=== PATIENT | female | born 1980 | race Two or more races ===

== ENCOUNTER 2024-07-21 11:02 | Emergency (ER) | payer MEDICAID, OTHER ==
[~2024-07-21] VITALS: Ht 172.7 cm; Wt 59.0 kg
[2024-07-21 11:56] LABS: Urine Bacteria None Seen /hpf (None Seen)
[2024-07-21 12:31] LABS: Urine Blood Negative /uL (Negative); Urine Clarity Clear (Clear); Urine Color Yellow (Yellow); Urine Mucus FEW (None Seen); Urine Protein, UAD TRACE (Negative); Urine Specific Gravity 1.017 (1.001-1.035); Urine Urobilinogen Normal (Negative); Urine WBC <1 /hpf (0 - 5)
[2024-07-21 12:37] VITALS: BP 136/92; RESP 20; TEMP 98.1; O2SAT 97
[2024-07-21 14:17] VITALS: PULSE 81
--- NOTE | 2024-07-21 15:02 | ED.PDOC ---
HPI Comments 43-year-old female with no past medical history presented with complaints of chest pain and cough. Patient mentioned that she had cough that started yesterday alongside sputum that was whitish in color. She also mentioned associated nasal congestion. She describes chest pain as substernal radiating to the left arm and back, increased on deep inspiration, not relieved by rest, burning and mild pressure-like. She mentioned the pain increased on lying down but relieved on sitting up. She mentioned mild fever yesterday. She denied any nausea, vomiting, abdominal pain, diarrhea, constipation, headac he, dizziness, shortness of breath, generalized weakness, fatigue, melena, hematemesis. Past medical history Denied Past surgical history Hysterectomy in January 2024 Medication history Denied Allergic history Denied Family history Nonsignificant Social history Patient smokes for last 25 years, denied alcohol, marijuana or any other drug intake. Review of system As described in the HPI Examination General Appearance: Alert, Oriented X3, Cooperative, No acute distress HEENT: EOMI Respiratory: Clear to auscultation, Normal air movement Cardiovascular: Regular rate, Normal S1, Normal S2 Abdominal: Normal bowel sounds Extremities: No cyanosis, No edema, Normal pulses, No tenderness/swelling Skin: No rashes, No breakdown Neuro: Normal speech and tone Chief Complaint: Chest Pain Time Seen by MD: 11:12 Allergies: Coded Allergies: NO KNOWN ALLERGIES (Unverified , 07/21/24) Home Meds Active Scripts Albuterol Sulfate (VENTOLIN MDI) 90 Mcg Ih, 90 MCG IN TID PRN for 7 Days, #1 INH Prov:BROOK VALENTIN RESIDENT 07/21/24 Methylprednisolone (Medrol Dosepak) 4 Mg Mark, 4 MG PO UD, #21 TAB UAD Prov:BROOK VALENTIN RESIDENT 07/21/24 Mode of Arrival: Ambulatory CP Differential Dx Differential Diagnosis: Angina, Anxiety / Panic Attack, Heart Failure, Hyperventilation, Pulmonary Embolus Differential Diagnosis: Chest Wall Pain, Costochondritis, Esophageal reflux/spasm, Gastritis, Myocardial Infarction, Pericarditis, Pneumonia, Pulmonary Embolus X-Ray, Labs, Meds, VS Vital Signs Date Time Temp Pulse Resp B/P (MAP) Pulse Ox O2 Delivery O2 Flow Rate FiO2 07/21/24 14:17 81 07/21/24 12:37 98.1 96 20 136/92 (107) 97 98.1 07/21/24 12:37 96 07/21/24 12:08 80 07/21/24 11:10 97.7 98 20 133/98 (110) 100 07/21/24 11:10 97.7 98 20 133/98 (110) 100 97.7 07/21/24 11:07 88 Lab Test 07/21/24 15:54 07/21/24 14:38 07/21/24 13:10 07/21/24 11:42 Range/Units Influenza Type A Antigen Negative Negative Influenza Type B Antigen Negative Negative SARS-CoV-2 Antigen (Rapid) Negative NEGATIVE Troponin I High Sensitivity < 3 L < 3 L < 3 L </=34 ng/L Test 07/21/24 11:25 Range/Units Urine Color Yellow Yellow Urine Clarity Clear Clear Urine pH 6.0 5.0-9.0 Urine Specific [place] 1.017 1.001-1.035 Urine Protein Trace H Negative Urine Ketones Negative Negative Urine Blood Negative Negative /uL Urine Nitrite Negative Negative Urine Bilirubin Negative Negative Urine Urobilinogen Normal Negative mg/dL Urine Leukocyte Esterase Negative Negative /uL Urine RBC 3 0 - 4 /hpf Urine WBC <1 0 - 5 /hpf Urine Squamous Epithelial Cells Few <5 /hpf Urine Bacteria None seen None Seen /hpf Urine Mucus Few None Seen Urine Glucose Normal Normal mg/dL Urine Test Negative Negative Time of 1ST Reevaluation: 17:00 Reevaluation 1ST: Improved Patient Education/Counseling: Diagnosis, Treatment Family Education/Counseling: No Family Present Comments Patient presented with the cough, nasal congestion, chest pain. workup was initiated. EKG did not show any abnormalities, tropes were within normal limits Chest x-ray did not show any acute abnormalities Patient mentioned improvement in his chest pain. Patient has been observed in the ED adequate length of time to insure improvement/stability. Patient was discharged with Medrol Dosepak and albuterol inhaler and was discharged to home. Departure 1 Departure Time of Disposition: 17:33 Impression: Primary Impression: Acute bronchitis, viral Disposition: 01 HOME / SELF CARE / HOMELESS Condition: Stable Additional Instructions: You MUST follow-up with your primary care/family doctor in 1 to 2 days. If you are unable to see your primary care/family doctor, please return to our emergency room for re-assessment and re-evaluation in 1 to 2 days. Return to the emergency room here in our facility or to the nearest ER [facility] if your symptoms change or worsen. e-Prescriptions Albuterol Sulfate (VENTOLIN MDI) 90 Mcg Ih 90 MCG IN TID PRN for 7 Days, #1 INH Prov: BROOK VALENTIN RESIDENT 07/21/24 Methylprednisolone (Medrol Dosepak) 4 Mg Mark 4 MG PO UD, #21 TAB UAD Prov: BROOK VALENTIN RESIDENT 07/21/24 Discharged With: Self Heart Score Heart Score: Heart Score Response (Comments) Value History Slightly Suspicious 0 EKG Normal 0 Age <45 0 Risk Factors No known risk factors 0 Troponin Normal limit 0 Total 0 BROOK VALENTIN RESIDENT Jul 21, 2024 15:02
--- NOTE | 2024-07-21 15:09 | DVH ---
CLINICAL INFORMATION: 43 years old, Female; Shortness of breath. TECHNIQUE: Single AP portable chest radiograph was obtained. COMPARISON: None FINDINGS: Lungs: Atelectasis in the lung bases. No focal consolidation visualized. No pneumothorax or pleural e ffusion. Cardiac: Heart size is within normal limits. Pulmonary vasculature: Unremarkable. Mediastinum/shannon: Unremarkable. Bones: No acute osseous abnormality identified. Other: No other significant findings. IMPRESSION: Atelectasis in the lung bases. No focal consolidation visualized.
[2024-07-21 17:10] LABS: COVID19 ANTIGEN SOFIA FIA NEGATIVE (NEGATIVE); Rapid Influenza A Negative (Negative); Rapid Influenza B Negative (Negative)
[2024-07-21] MEDS ORDERED: METH4PAK PO (17:49)
[2024-07-21] MEDS ORDERED: ALBUAER3 IN (17:49)
--- NOTE | 2024-07-22 17:21 | ECG ---
[facility] Test Date: 2024-07-21 Test Time: 12:08:40 Pat Name: JOHANNA SHEBOYGAN FALLS Department: er Room: Gender: F Processing Analyst: kami : 1980 Requested By: STEFANY ROOT Order Number: [id number] Reading MD: Measurements Intervals [place] Rate: 80 P: 43 MT: 141 QRS: -38 QRSD: 85 T: 20 QT: 334 QTc: 386 Interpretive Statements Sinus rhythm Left axis deviation Low voltage, precordial leads Abnormal R-wave progression, late transition Borderline T abnormalities, anterior leads Please click the below link to view image of tracing.
--- NOTE | 2024-07-24 06:44 | ECG ---
[facility] Test Date: 2024-07-21 Test Time: 14:17:36 Pat Name: JOHANNA ERIE Department: ER Room: Gender: F Lead Qa Analyst: KAREN : 1980 Requested By: STEFANY ROOT Order Number: [id number] Reading MD: Measurements Intervals [place] Rate: 81 P: 58 TN: 132 QRS: -36 QRSD: 88 T: -1 QT: 357 QTc: 415 Interpretive Statements Sinus rhythm Inferior infarct, old Consider anterior infarct Please click the below link to view image of tracing.
--- NOTE | 2024-07-25 13:13 | ECG ---
[facility] Test Date: 2024-07-21 Test Time: 11:07:08 Pat Name: JOHANNA SHEBOYGAN Department: ER Room: Gender: F Mine Analyst: DR BERGER: 1980 Requested By: STEFANY ROOT Order Number: [id number] Reading MD: Measurements Intervals [place] Rate: 88 P: 32 LA: 142 QRS: -38 QRSD: 84 T: 6 QT: 342 QTc: 414 Interpretive Statements Sinus rhythm RSR' in V1 or V2, probably normal variant Inferior infarct, old Consider anterior infarct Please click the below link to view image of tracing.
== END 2024-07-21 17:57 | disposition home or self-care (01) ==
LOC: ER 11:02
DX: J20.8 Acute bronchitis due to other specified organisms (principal); Z90.710 Acquired absence of both cervix and uterus; Z20.822 Contact with and (suspected) exposure to COVID-19
CPT/HCPCS: 36415; 71045; 81001; 81025; 84484; 87426; 87804; 93005